=== PATIENT | female | born 1955 | race Caucasian/White ===

== ENCOUNTER → 2021-01-13 | Outpatient (CLI) | payer OTHER ==
[~2021-01-13] MED LIST: ALLEGRA30 MG; BUPROPION HCL200 MG; BYETTA; BYETTA PEN 51 PENIN1; CIPROFLOXACIN500 M1 PO; EVISTA; FLAGYL500 MG PO; NORCO 5-325 TA1 EACH PO; PRINIVIL5 MG; TRIAMTERENE W/1 EACH; ZOFRAN ODT4 MG PO
== END ==
LOC: CAT 13:12
PROVIDERS: ATTEND Family Medicine
DX: Z13.6 Encounter for screening for cardiovascular disorders (principal)